=== PATIENT | female | born 2000 ===

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

== ENCOUNTER → 2020-04-29 | Outpatient (CLI) | payer OTHER | END | disposition home or self-care (01) | LOC: LAB EV 15:20 → LAB SHORT 15:20 | DX: R30.9 Painful micturition, unspecified (principal) | CPT/HCPCS: 87086 ==